=== PATIENT | male | born 1935 | race Caucasian/White ===

== ENCOUNTER → 2017-11-04 | Outpatient (CLI) | payer MEDICARE, OTHER | END | disposition home or self-care (01) | LOC: STAR 13:46 | PROVIDERS: ATTEND Family Medicine | DX: I10 Essential (primary) hypertension (principal); I44.0 Atrioventricular block, first degree; I51.7 Cardiomegaly | CPT/HCPCS: 93005 ==

== ENCOUNTER 2017-12-01 06:31 | Inpatient (IN) | payer MEDICARE, OTHER ==
[~2017-12-01] VITALS: Ht 182.9 cm; Wt 85.5 kg
[~2017-12-01 06:31] MED LIST: AMLO5TAB2 PO; ASPI-496 PO; CARV12.543 PO; CETI10CA PO; CHOL200074 PO; DONE10TA56 PO; LAMO200T4 PO; LORA2TAB PO; MULT1TAB60 PO; NAPR220C2 PO; OMEP20TA62 PO; OXYC-302 PO; PRAV80TA2 PO; TAMS-11 PO
[2017-12-01] MEDS ORDERED: VANCOMYCIN PER PHARMACY MC ONE (06:53)
[2017-12-01] MEDS ORDERED: VANCOMYCIN 1,500 MG in SODIUM CHLORIDE 0.9% 250 ML IV ONE (07:00)
[2017-12-01] MEDS ORDERED: TRANEXAMIC ACID 100 MG/ML, 10ML ONE (07:08)
[2017-12-01] MEDS ORDERED: KETOROLAC 60 MG/2 ML ONE (07:08)
[2017-12-01] MEDS ORDERED: SODIUM CHLORIDE 0.9% 100 ML ONE (07:09)
[2017-12-01] MEDS ORDERED: ROPIvacaine/PF 0.2%, 20 ML ONE (07:09)
[2017-12-01] MEDS ORDERED: morphine SULFATE/PF 1 MG/ML, 10ML ONE (07:09)
[2017-12-01] MEDS ORDERED: NEOSPORIN OINT, 15GM ONE (07:09)
[2017-12-01] MEDS ORDERED: EPINEPHRINE 1 MG/ML, 1ML ONE (07:09)
[2017-12-01] MEDS ORDERED: LACTATED RINGERS 1,000 ML IV SCH (07:13)
[2017-12-01 07:56] VITALS: BP 147/82
[2017-12-01] MEDS ORDERED: OXYC20TA42 PO (08:03)
[2017-12-01] MEDS ORDERED: MELO15TA24 PO (08:03)
[2017-12-01] MEDS ORDERED: FAMOTIDINE 20 MG TABLET PO ONE (08:30)
[2017-12-01] MEDS ORDERED: TAMSULOSIN 0.4 MG CAP.ER.24H PO ONE (08:30)
[2017-12-01] MEDS ORDERED: OXYcodone IR 5MG TABLET PO ONE (08:30)
[2017-12-01] MEDS ORDERED: ACETAMINOPHEN 500 MG TABLET PO ONE (08:30)
[2017-12-01] MEDS ORDERED: GABAPENTIN 300 MG CAPSULE PO ONE ×2 (08:30→09:00)
[2017-12-01] MEDS ORDERED: FENTANYL PF 250 MCG/5ML ONE (08:38)
[2017-12-01] MEDS ORDERED: GLYCOPYRROLATE 0.2MG/1ML, 5ML ONE (09:23)
[2017-12-01] MEDS ORDERED: LIDOCAINE 4%, 4 ML SYR/CANN TP ONE (09:23)
[2017-12-01] MEDS ORDERED: EPHEDRINE 50 MG/ML, 1ML ONE (09:23)
[2017-12-01] MEDS ORDERED: KETAMINE 10 MG/ML, 20ML ONE (09:57)
[2017-12-01] MEDS ORDERED: ONDANSETRON 2MG/ML, 2ML ONE (10:10)
[2017-12-01] MEDS ORDERED: DEXAMETHASONE 4 MG/ML, 1ML ONE ×2 (10:10)
[2017-12-01] MEDS ORDERED: SUCCINYLCHOLINE 20 MG/ML, 10ML ONE (10:10)
[2017-12-01] MEDS ORDERED: ROCURONIUM 10 MG/ML,10ML ONE (10:10)
[2017-12-01] MEDS ORDERED: PROPOFOL 10 MG/ML, 20ML ONE (10:10)
[2017-12-01] MEDS ORDERED: ALBUTEROL SULFATE 2.5 MG/3 ML NPPB PRN (10:30)
[2017-12-01] MEDS ORDERED: PROMETHAZINE 25 MG/ML, 1ML IV PRN (10:30)
[2017-12-01] MEDS ORDERED: morphine SULFATE 10 MG/ML, 1ML IV PRN (10:30)
[2017-12-01] MEDS ORDERED: ROPIvacaine/PF 0.2%, 100ML 550 ML (check volume) INJ ONE ×2 (10:30→11:30)
[2017-12-01] MEDS ORDERED: OXYcodone 5 MG/5 ML ORAL.SOL UDC PO PRN (10:30)
[2017-12-01] MEDS ORDERED: DIAZEPAM 5 MG/ML, 2ML IVPush PRN (10:30)
[2017-12-01] MEDS ORDERED: FENTANYL PF 100 MCG/2ML ONE ×2 (11:15→11:52)
[2017-12-01] MEDS ORDERED: OXYcodone 5 MG/5 ML ORAL.SOL UDC ONE (11:16)
[2017-12-01] MEDS ORDERED: ACETAMINOPHEN 650 MG/20.3 ML UDC ONE (11:16)
[2017-12-01] MEDS: FENTANYL PF 100 MCG/2ML IV PRN ×2 (11:30→11:45)
[2017-12-01] MEDS ORDERED: ONDANSETRON 2MG/ML, 2ML IVPush PRN (14:00)
[2017-12-01] MEDS ORDERED: SENNA/DOCUSATE TABLET PO PRN (14:00)
[2017-12-01] MEDS ORDERED: BISACODYL 10 MG SUPP PR PRN (14:00)
[2017-12-01] MEDS ORDERED: MAGNESIUM HYDROXIDE 8%, 30ML UDC PO PRN (14:00)
[2017-12-01] MEDS ORDERED: ALUMINUM/MAG/SIMETHICONE 30 ML UDC PO PRN (14:00)
[2017-12-01] MEDS ORDERED: ACETAMINOPHEN 325 MG TABLET PO PRN (14:00)
[2017-12-01] MEDS ORDERED: ZOLPIDEM 5MG TABLET PO PRN (14:00)
[2017-12-01] MEDS ORDERED: DIPHENHYDRAMINE 25 MG CAPSULE PO PRN (14:00)
[2017-12-01] MEDS: TAMSULOSIN 0.4 MG CAP.ER.24H PO SCH (15:00)
[2017-12-01] MEDS: POTASSIUM CHLORIDE 10 MEQ in D5%-0.45% NACL 1,000 ML IV SCH (15:45)
[2017-12-01] MEDS: CEFAZOLIN PMX 1GM/50ML 50 ML IVPB SCH (15:45)
[2017-12-01 20:24] VITALS: BP 98/62
[2017-12-01] MEDS ORDERED: LAMOTRIGINE 200 MG TABLET PO SCH (21:00)
[2017-12-01] MEDS: DOCUSATE 100 MG CAPSULE PO SCH (22:03)
[2017-12-01] MEDS: CARVEDILOL 12.5 MG TABLET PO SCH (22:05)
[2017-12-01] MEDS: OMEPRAZOLE 20 MG CAPSULE.DR PO SCH (22:05)
[2017-12-01] MEDS: AMLODIPINE 5 MG TABLET PO SCH (22:09)
[2017-12-01] MEDS: LAMOTRIGINE 100 MG TABLET PO SCH (22:41)
[2017-12-01 23:54] VITALS: BP 91/53
[2017-12-02] MEDS: CEFAZOLIN PMX 1GM/50ML 50 ML IVPB SCH (01:40)
[2017-12-02] MEDS: HYDROcodone/APAP 7.5-325MG/15ML UDC PO PRN ×2 (02:48→20:14)
[2017-12-02 04:00] VITALS: BP 89/46
[2017-12-02 04:05] VITALS: BP 99/50
[2017-12-02 05:46] LABS: CHLORIDE 95 mmol/L (98-107)
[2017-12-02 05:50] LABS: ANION GAP 6 mmol/L (5-15); CREATININE 1.08 mg/dL (0.7-1.3)
[2017-12-02] MEDS: ENOXAPARIN 40 MG/0.4 ML SQ SCH (06:43)
[2017-12-02 07:35] VITALS: BP 101/56
[2017-12-02] MEDS: DOCUSATE 100 MG CAPSULE PO SCH ×2 (08:52→20:14)
[2017-12-02] MEDS: DONEPEZIL 10 MG TABLET PO SCH (08:52)
[2017-12-02] MEDS: MULTIVITAMINS/MINERALS TABLET PO SCH (08:53)
[2017-12-02] MEDS: LAMOTRIGINE 200 MG TABLET PO SCH (08:53)
[2017-12-02] MEDS: TAMSULOSIN 0.4 MG CAP.ER.24H PO SCH (08:53)
[2017-12-02] MEDS: OMEPRAZOLE 20 MG CAPSULE.DR PO SCH ×2 (08:54→20:13)
[2017-12-02] MEDS: POTASSIUM CHLORIDE 10 MEQ in D5%-0.45% NACL 1,000 ML IV SCH (10:06)
[2017-12-02 13:05] VITALS: BP 95/56
[2017-12-02] MEDS: KETOROLAC 30 MG/1 ML IV SCH ×2 (14:35→22:48)
[2017-12-02 20:00] VITALS: BP 143/66
[2017-12-02] MEDS: AMLODIPINE 5 MG TABLET PO SCH (20:13)
[2017-12-02] MEDS: PRAVASTATIN 40 MG TABLET PO SCH (20:13)
[2017-12-02] MEDS: LAMOTRIGINE 100 MG TABLET PO SCH (20:13)
[2017-12-02] MEDS: CARVEDILOL 12.5 MG TABLET PO SCH (20:13)
[2017-12-02] MEDS ORDERED: LAMOTRIGINE 100 MG TABLET PO SCH (21:00)
[2017-12-03 04:45] VITALS: BP 132/75
[2017-12-03 05:42] LABS: BASOPHILS # (AUTO) 0.02 x10^3/uL (0-0.1); BASOPHILS % (AUTO) 0 % (0-1); EOSINOPHILS # (AUTO) 0.02 x10^3/uL (0-0.4); EOSINOPHILS % (AUTO) 0 % (1-7); LYMPHOCYTES # (AUTO) 1.03 x10^3/uL (1-3.4); LYMPHOCYTES % (AUTO) 11 % (22-44); MD NO; MEAN CORPUSCULAR HEMOGLOBIN 34.6 pg (27.5-34.5); MEAN CORPUSCULAR HGB CONC 34.8 g/dL (33.2-36.2); MEAN CORPUSCULAR VOLUME 99.6 fL (81-97); MEAN PLATELET VOLUME 7.7 fL (7.4-10.4); MONOCYTES # (AUTO) 1.01 x10^3/uL (0.2-0.8); MONOCYTES % (AUTO) 11 % (2-9); NEUTROPHILS # (AUTO) 7.27 x10^3/uL (1.8-6.8); NEUTROPHILS % (AUTO) 78 % (42-75); PLATELET COUNT 202 x10^3/uL (130-400); RED BLOOD COUNT 2.57 x10^6/uL (4.38-5.82)
[2017-12-03 06:00] LABS: ANION GAP 8 mmol/L (5-15); CALCIUM 8.1 mg/dL (8.5-10.1); CHLORIDE 92 mmol/L (98-107); CREATININE 1.01 mg/dL (0.7-1.3)
[2017-12-03] MEDS: KETOROLAC 30 MG/1 ML IV SCH (06:09)
[2017-12-03] MEDS: ENOXAPARIN 40 MG/0.4 ML SQ SCH (06:09)
[2017-12-03] MEDS: POTASSIUM CHLORIDE 10 MEQ in D5%-0.45% NACL 1,000 ML IV SCH (06:12)
[2017-12-03 06:55] VITALS: BP 125/73
[2017-12-03] MEDS: MULTIVITAMINS/MINERALS TABLET PO SCH (09:57)
[2017-12-03] MEDS: DONEPEZIL 10 MG TABLET PO SCH (10:00)
[2017-12-03] MEDS: OMEPRAZOLE 20 MG CAPSULE.DR PO SCH ×2 (10:01→21:10)
[2017-12-03] MEDS: LAMOTRIGINE 200 MG TABLET PO SCH (10:01)
[2017-12-03] MEDS: DOCUSATE 100 MG CAPSULE PO SCH ×2 (10:01→21:10)
[2017-12-03] MEDS: TAMSULOSIN 0.4 MG CAP.ER.24H PO SCH (10:01)
[2017-12-03] MEDS ORDERED: POLYETHYLENE GLYCOL 17 GM PACKET PO ONE (10:30)
[2017-12-03] MEDS ORDERED: POLYETHYLENE GLYCOL 17 GM PACKET NG PRN (10:30)
[2017-12-03 12:52] VITALS: BP 148/73
[2017-12-03] MEDS: SODIUM CHLORIDE 1 GM TABLET PO SCH ×3 (14:30→21:10)
[2017-12-03 15:35] LABS: MICROSCOPIC NOT IND
[2017-12-03 15:38] LABS: CULTURE INDICATED? NO
[2017-12-03 15:43] LABS: ABSOLUTE RETICS # 0.061 x10^6/uL (0.5-1.5); RED BLOOD COUNT 2.78 x10^6/uL (4.38-5.82); RETICULOCYTE COUNT % 2.21 % (0.5-1.5)
[2017-12-03 16:09] LABS: FOLATE LEVEL 11.9 ng/mL (3.1-17.5)
[2017-12-03] MEDS: HYDROcodone/APAP 7.5-325MG/15ML UDC PO PRN (18:24)
[2017-12-03 20:00] VITALS: BP 134/74
[2017-12-03] MEDS: AMLODIPINE 5 MG TABLET PO SCH (21:10)
[2017-12-03] MEDS: LAMOTRIGINE 100 MG TABLET PO SCH (21:10)
[2017-12-03] MEDS: CARVEDILOL 12.5 MG TABLET PO SCH (21:10)
[2017-12-03] MEDS: PRAVASTATIN 40 MG TABLET PO SCH (21:11)
[2017-12-04 02:20] VITALS: BP 114/63
[2017-12-04] MEDS: SODIUM CHLORIDE 1 GM TABLET PO SCH ×4 (05:17→20:36)
[2017-12-04] MEDS: ENOXAPARIN 40 MG/0.4 ML SQ SCH (05:17)
[2017-12-04 06:01] LABS: ANION GAP 7 mmol/L (5-15); CALCIUM 8.4 mg/dL (8.5-10.1); CHLORIDE 94 mmol/L (98-107)
[2017-12-04 06:02] LABS: CREATININE 0.93 mg/dL (0.7-1.3)
[2017-12-04 07:38] VITALS: BP 156/69
[2017-12-04] MEDS: LAMOTRIGINE 200 MG TABLET PO SCH (09:49)
[2017-12-04] MEDS: OMEPRAZOLE 20 MG CAPSULE.DR PO SCH ×2 (09:49→20:35)
[2017-12-04] MEDS: DONEPEZIL 10 MG TABLET PO SCH (09:49)
[2017-12-04] MEDS: DOCUSATE 100 MG CAPSULE PO SCH ×2 (09:49→20:36)
[2017-12-04] MEDS: MULTIVITAMINS/MINERALS TABLET PO SCH (09:49)
[2017-12-04] MEDS: TAMSULOSIN 0.4 MG CAP.ER.24H PO SCH (09:49)
[2017-12-04 13:08] VITALS: BP 109/53
[2017-12-04] MEDS: FERROUS SULFATE 325 MG TABLET PO SCH ×2 (13:40→16:13)
[2017-12-04] MEDS: HYDROcodone/APAP 7.5-325MG/15ML UDC PO PRN (17:58)
[2017-12-04 20:14] VITALS: BP 115/61
[2017-12-04] MEDS: PRAVASTATIN 40 MG TABLET PO SCH (20:35)
[2017-12-04] MEDS: CARVEDILOL 12.5 MG TABLET PO SCH (20:36)
[2017-12-04] MEDS: LAMOTRIGINE 100 MG TABLET PO SCH (20:36)
[2017-12-04] MEDS: AMLODIPINE 5 MG TABLET PO SCH (20:36)
[2017-12-05 03:04] VITALS: BP 95/57
[2017-12-05 05:03] LABS: ANION GAP 6 mmol/L (5-15); CALCIUM 8.2 mg/dL (8.5-10.1); CHLORIDE 97 mmol/L (98-107)
[2017-12-05 05:05] LABS: CREATININE 0.88 mg/dL (0.7-1.3)
[2017-12-05 05:09] LABS: BASOPHILS # (AUTO) 0.02 x10^3/uL (0-0.1); BASOPHILS % (AUTO) 0 % (0-1); EOSINOPHILS # (AUTO) 0.19 x10^3/uL (0-0.4); EOSINOPHILS % (AUTO) 3 % (1-7); LYMPHOCYTES # (AUTO) 1.18 x10^3/uL (1-3.4); LYMPHOCYTES % (AUTO) 15 % (22-44); MD NO; MEAN CORPUSCULAR HEMOGLOBIN 34.4 pg (27.5-34.5); MEAN CORPUSCULAR HGB CONC 34.5 g/dL (33.2-36.2); MEAN CORPUSCULAR VOLUME 99.8 fL (81-97); MEAN PLATELET VOLUME 7.4 fL (7.4-10.4); MONOCYTES % (AUTO) 11 % (2-9); NEUTROPHILS # (AUTO) 5.48 x10^3/uL (1.8-6.8); NEUTROPHILS % (AUTO) 71 % (42-75); PLATELET COUNT 240 x10^3/uL (130-400); RED BLOOD COUNT 2.32 x10^6/uL (4.38-5.82); RED CELL DISTRIBUTION WIDTH 14.2 % (9.4-14.8)
[2017-12-05] MEDS: SODIUM CHLORIDE 1 GM TABLET PO SCH ×2 (06:08→11:13)
[2017-12-05] MEDS: ENOXAPARIN 40 MG/0.4 ML SQ SCH (06:08)
[2017-12-05 06:49] VITALS: BP 128/54
[2017-12-05] MEDS: FERROUS SULFATE 325 MG TABLET PO SCH ×2 (08:50→11:13)
[2017-12-05] MEDS: MULTIVITAMINS/MINERALS TABLET PO SCH (08:50)
[2017-12-05] MEDS: OMEPRAZOLE 20 MG CAPSULE.DR PO SCH (08:50)
[2017-12-05] MEDS: DONEPEZIL 10 MG TABLET PO SCH (08:51)
[2017-12-05] MEDS: TAMSULOSIN 0.4 MG CAP.ER.24H PO SCH (08:51)
[2017-12-05] MEDS: LAMOTRIGINE 200 MG TABLET PO SCH (08:51)
[2017-12-05] MEDS: DOCUSATE 100 MG CAPSULE PO SCH (08:51)
[2017-12-05] MEDS ORDERED: SODI1TAB PO (10:32)
[2017-12-05] MEDS ORDERED: FERR-51 PO (10:32)
[2017-12-05] MEDS: HYDROcodone/APAP 7.5-325MG/15ML UDC PO PRN (11:13)
== END 2017-12-05 13:10 | DRG 470 ==
LOC: OUT 06:31 → EDSTATUS 07:30 → 4NOR 13:16 → OUT 23:34
PROVIDERS: ADMIT Orthopaedic Surgery; ATTEND Orthopaedic Surgery
PROC: 0SRD0J9 Replacement of Left Knee Joint with Synthetic Substitute, Cemented, Open Approach (ICD-10-PCS; principal; 2017-12-01 09:00)
DX: M17.12 Unilateral primary osteoarthritis, left knee (principal); E22.2 Syndrome of inappropriate secretion of antidiuretic hormone; G40.909 Epilepsy, unspecified, not intractable, without status epilepticus; D50.9 Iron deficiency anemia, unspecified; E78.5 Hyperlipidemia, unspecified; I10 Essential (primary) hypertension; K21.9 Gastro-esophageal reflux disease without esophagitis; N40.0 Benign prostatic hyperplasia without lower urinary tract symptoms; Z80.9 Family history of malignant neoplasm, unspecified; Z82.49 Family history of ischemic heart disease and other diseases of the circulatory system; Z82.5 Family history of asthma and other chronic lower respiratory diseases; Z87.891 Personal history of nicotine dependence
CPT/HCPCS: 36415; 80048; 81003; 82040; 82436; 82533; 82570; 82728; 82746; 83540; 83550; 83935; 84133; 84300; 84443; 85025; 85045; C1713; J0171; J0690; J1100; J1650; J1885; J2274; J2405; J2704; J2795; J3010; J3370; J3480; J3490; C1776; J0330; J7050; J7120